=== PATIENT | female | born 1945 | race Caucasian/White ===

== ENCOUNTER 2017-05-13 23:12 | Observation (INO) ==
[2017-05-13] MEDS ORDERED: Ipratropium/Albuterol Neb 3 ML IH ONE (23:14)
[2017-05-13] MEDS ORDERED: Azithromycin 500 MG in D5% in Water 250 ML IVPB ONE (23:16)
[2017-05-13 23:35] LABS: Basophils % 0.2 %; Eosinophils # 0.6 K/mcL (0.0-0.6); Eosinophils % 4.5 %; Hematocrit 38.3 % (35.3-44.9); Hemoglobin 13.1 g/dL (11.5-15.4); Immature Granulocytes % 0.5 % (0-4); Lymphocytes % 23.4 %; Mean Corpuscular HGB Conc 34.2 g/dL (31.6-35.5); Mean Corpuscular Hemoglobin 29.4 pg (28.0-33.3); Mean Corpuscular Volume 85.9 fL (83.0-100.0); Mean Platelet Volume 9.7 fL (9.4-12.4); Monocytes # 0.7 K/mcL (0.0-1.3); Monocytes % 5.5 %; Neutrophils # 8.4 K/mcL (1.6-8.9); Platelet Count 266 K/mcL (140-400); Red Blood Count 4.46 M/mcL (3.82-4.97); Red Cell Distribution Width 13.7 % (11.5-14.5); Segmented Neutrophils % 65.9 %
[2017-05-13] MEDS: 0.9 % Sodium Chloride 1,000 ML IVC ONE (23:42)
[2017-05-13 23:45] LABS: Activated Partial Thrombo Time 26.8 Seconds (26.0-36.0)
[2017-05-13 23:52] LABS: Alanine Aminotransferase 13 Units/L (0-55); Albumin 3.5 g/dL (3.5-5.0); Alkaline Phosphatase 75 Units/L (38-126); Aspartate Amino Transferase 19 Units/L (5-34); BUN/Creatinine Ratio 11 (6-26); Bilirubin,Total 0.3 mg/dL (0.2-1.2); Blood Urea Nitrogen 9 mg/dL (7-20); Calcium 9.3 mg/dL (8.6-10.8); Carbon Dioxide 24 mEq/L (19-29); Chloride 106 mEq/L (98-109); Globulin 3.5 g/dL (2.4-3.5); Glucose 131 mg/dL (70-99); Osmolality,Calculated 298 (280-300); Potassium 2.7 mEq/L (3.5-4.5); Sodium 144 mEq/L (136-145); eGFR For African Americans > 60 (> 60); eGFR For Non-African Americans > 60 (> 60)
--- NOTE | 2017-05-13 23:52 | Emergency Department Note ---
Disposition Clinical Impression: Acute exacerbation of chronic obstructive airways disease, Community acquired pneumonia Disposition: Admitted As Inpatient Condition: Fair Referrals: Al Elder MD [Primary Care Provider] - Forms: ED Satisfaction Letter Time of Disposition: 03:54 ([facility]) SOB HPI - General Chief Complaint: ED Shortness of Breath/Dyspnea Stated Complaint: Difficulty breathing Time Seen by Provider: 05/13/17 23:17 Source: family Mode of arrival: ambulatory Limitations: age Nursing Notes Reviewed: Yes Vital Signs Reviewed: Yes - History of Present Illness 71-year-old female who presents to the emergency room his having increasing shortness of breath wheezing cough unable to catch her breath associated a passout she denies blurred vision double vision loss vision denies diarrhea melena hematochezia or hematemesis she denies numbness tingling weakness recently gain or weight loss patient states though she has been having dyspnea with activity he because seashell short of breath denies any cough hemoptysis or sputum flexion Pt Subjective Complaint: shortness of breath Onset (ago): day(s) Context: recent illness Severity: moderate Consistency/Duration: constant Improves with: oxygen, bronchodilators Worsens with: lying flat, exertion Known history of: COPD, congestive heart failure Associated symptoms: Reports: fever, cough, wheezing, sputum production. Denies : chest pain, pain with inspiration, orthopnea, lower extremity pain, polyuria, polydipsia, parasthesias, palpitations, hemoptysis, diaphoresis, nausea/vomiting , syncope, abdominal pain, rash, sense of impending doom Treatment prior to arrival: none Cough present: Yes Cough Description: Involuntary, Productive, Weak, Bronchospastic, Wheezy Cough Frequency: Intermittent Sputum production: Yes Sputum Amount: Scant Sputum Color: Cream, Yellow - Related Data Home Medications Medication Instructions Recorded Confirmed Citalopram Hydrobromide 20 mg PO DAILY 05/14/17 05/14/17 [Citalopram HBr] Mometasone Furoate [Asmanex Hfa] 2 puff IH BID 05/14/17 05/14/17 Omeprazole [PriLOSEC] 20 mg PO DAILY 05/14/17 05/14/17 Roflumilast [Daliresp] 500 mcg PO DAILY 05/14/17 05/14/17 traZODone [TraZODone] 50 mg PO DAILY 05/14/17 05/14/17 Previous Rx's Medication Instructions Recorded Albuterol Sulfate [Albuterol 2 puff IH Q6HR PRN #1 inhaler 01/18/17 Inhaler] Furosemide [Lasix] 40 mg PO DAILY #30 tablet 01/18/17 Meloxicam 15 mg PO DAILY #7 tablet 01/18/17 Metoprolol [Lopressor] 25 mg PO BID #60 tablet 01/18/17 Potassium Chloride 20 meq PO DAILY #30 tab.er.prt 01/18/17 Allergies Allergy/AdvReac Type Severity Reaction Status Date / Time No Known Allergies Allergy Verified 07/22/16 22:04 All systems ED: reviewed and negative except as stated. Review of Systems: As Per HPI Constitutional: Reports: fever. Denies: chills, weakness Eyes: Denies: eye pain, eye discharge ENT ED: Reports: congestion. Denies: ear pain, throat pain Cardiovascular: Reports: dyspnea on exertion. Denies: chest pain, palpitations Respiratory: Reports: cough, dyspnea, wheezes, sputum production Gastrointestinal: Denies: abdominal pain, nausea, vomiting Genitourinary: Denies: urgency, dysuria, frequency Musculoskeletal: Denies: back pain, neck pain Integumentary: Denies: rash, abrasion, lesions Neurological: Reports: weakness. Denies: headache Psychiatric: Reports: anxiety. Denies: depression Endocrine: Denies: fatigue, heat or cold intolerance Hematological/Lymphatic: Denies: easy bleeding Allergic/Immunologic: Denies: facial swelling Past Medical History - Past Medical History Attestation: Yes The following information was validated with the patient. Source: patient, old records reviewed, nursing notes reviewed Medical history: Reports: COPD Psychiatric history: Reports: anxiety, depression - Social History Smoking Status: Former smoker Smokeless Tobacco Status: No Alcohol use: Reports: none Drug use: Reports: none Physical Exam - General Limitations: age General appearance: alert, anxious, in distress, obese - Head Head exam: atraumatic, normocephalic, normal inspection - Eye Eye exam: Present: normal appearance, PERRL, EOMI - ENT ENT exam: normal exam, normal oropharynx, mucous membranes moist, TM's normal bilaterally, normal external ear exam - Neck Neck exam: Present: normal inspection, full ROM, trachea midline - Chest Chest inspection: Present: normal inspection, symmetric chest wall rise - Respiratory Respiratory exam: Present: wheezes, accessory muscle use, prolonged expiratory phase - Cardiovascular Cardiovascular exam: Present: regular rate, normal rhythm, normal heart sounds - Abdominal Exam Abdominal exam: Present: soft, Non-Tender, normal bowel sounds. Absent: mass, pulsatile mass - Extremities Exam Extremities exam: Present: normal inspection, full ROM, normal capillary refill. Absent: tenderness, pedal edema, joint swelling, calf tenderness - Expanded Lower Extremity Exam Neurovascular/Tendon exam: Present: normal capillary refill, normal fine/light touch Gait: observed and normal - Back Exam Back exam: Present: normal inspection, full ROM. Absent: muscle spasm - Neurological Exam Neurological exam: Present: alert, oriented X3, CN II-XII intact - Psychiatric Psychiatric exam: Present: normal affect, normal mood, anxious - Skin Skin exam: Present: warm, dry, intact, normal color Course Course Narrative: Patient seen examined given an aerosol treatment 2 patient was bringing up phlegm patient was then admitted transferred to [facility] stable Vital Signs Temperature 98.7 F 05/13/17 23:17 Pulse Rate 113 05/13/17 23:17 Respiratory Rate 26 05/13/17 23:17 Blood Pressure 210/122 05/13/17 23:17 O2 Sat by Pulse Oximetry 100 05/13/17 23:17 Temperature 98.8 F 05/14/17 01:15 Pulse Rate 100 05/14/17 02:52 Respiratory Rate 20 05/14/17 02:52 Blood Pressure 206/114 05/14/17 02:52 O2 Sat by Pulse Oximetry 99 05/14/17 02:52 Oxygen Delivery Oxygen Delivery Room Air Shortness of Breath/Dyspnea - Differential Diagnosis Likely: acute exacerbation of chronic obstructive airways disease, congestive heart failure, pneumonia, pneumothorax - Medical Records Medical records reviewed: Yes I reviewed the patient's medical records. - Lab Data Lab results reviewed: Yes I reviewed the patient's lab results. Result diagrams: 05/13/17 23:20 05/13/17 23:20 Lab Results 05/13/17 05/13/17 05/13/17 Range/Units 23:20 23:20 23:20 WBC 12.8 H (4.3-11.1) K/mcL RBC 4.46 (3.82-4.97) M/mcL Hgb 13.1 (11.5-15.4) g/dL Hct 38.3 (35.3-44.9) % MCV 85.9 (83.0-100.0) fL MCH 29.4 (28.0-33.3) pg MCHC 34.2 (31.6-35.5) g/dL RDW 13.7 (11.5-14.5) % Plt Count 266 (140-400) K/mcL MPV 9.7 (9.4-12.4) fL Immature Gran % 0.5 (0-4) % Seg Neutrophils % 65.9 % Lymphocytes % 23.4 % Monocytes % 5.5 % Eosinophils % 4.5 % Basophils % 0.2 % Neutrophils # 8.4 (1.6-8.9) K/mcL Lymphocytes # 3.0 (0.6-4.6) K/mcL Monocytes # 0.7 (0.0-1.3) K/mcL Eosinophils # 0.6 (0.0-0.6) K/mcL Basophils # 0.0 (0.0-0.2) K/mcL PT 11.0 (9.4-12.1) Seconds INR 1.0 APTT 26.8 (26.0-36.0) Seconds Sodium 144 (136-145) mEq/L Potassium 2.7 L (3.5-4.5) mEq/L Chloride 106 (98-109) mEq/L Carbon Dioxide 24 (19-29) mEq/L BUN 9 (7-20) mg/dL Creatinine 0.84 (0.57-1.11) mg/dL Est GFR ( Amer) > 60 (> 60) Est GFR (Non-Af Amer) > 60 (> 60) BUN/Creatinine Ratio 11 (6-26) Glucose 131 H (70-99) mg/dL Calculated Osmolality 298 (280-300) Lactic Acid (0.5-2.2) mmol/L Calcium 9.3 (8.6-10.8) mg/dL Total Bilirubin 0.3 (0.2-1.2) mg/dL AST 19 (5-34) Units/L ALT 13 (0-55) Units/L Alkaline Phosphatase 75 (38-126) Units/L Troponin I (0-0.03) ng/mL B-Natriuretic Peptide (0-100) pg/mL Serum Total Protein 7.0 (6.0-8.3) g/dL Albumin 3.5 (3.5-5.0) g/dL Globulin 3.5 (2.4-3.5) g/dL Albumin/Globulin Ratio 1.0 L (1.1-2.2) 05/13/17 05/13/17 05/13/17 Range/Units 23:20 23:20 23:20 WBC (4.3-11.1) K/mcL RBC (3.82-4.97) M/mcL Hgb (11.5-15.4) g/dL Hct (35.3-44.9) % MCV (83.0-100.0) fL MCH (28.0-33.3) pg MCHC (31.6-35.5) g/dL RDW (11.5-14.5) % Plt Count (140-400) K/mcL MPV (9.4-12.4) fL Immature Gran % (0-4) % Seg Neutrophils % % Lymphocytes % % Monocytes % % Eosinophils % % Basophils % % Neutrophils # (1.6-8.9) K/mcL Lymphocytes # (0.6-4.6) K/mcL Monocytes # (0.0-1.3) K/mcL Eosinophils # (0.0-0.6) K/mcL Basophils # (0.0-0.2) K/mcL PT (9.4-12.1) Seconds INR APTT (26.0-36.0) Seconds Sodium (136-145) mEq/L Potassium (3.5-4.5) mEq/L Chloride (98-109) mEq/L Carbon Dioxide (19-29) mEq/L BUN (7-20) mg/dL Creatinine (0.57-1.11) mg/dL Est GFR ( Amer) (> 60) Est GFR (Non-Af Amer) (> 60) BUN/Creatinine Ratio (6-26) Glucose (70-99) mg/dL Calculated Osmolality (280-300) Lactic Acid 3.1 H (0.5-2.2) mmol/L Calcium (8.6-10.8) mg/dL Total Bilirubin (0.2-1.2) mg/dL AST (5-34) Units/L ALT (0-55) Units/L Alkaline Phosphatase (38-126) Units/L Troponin I 0.00 (0-0.03) ng/mL B-Natriuretic Peptide 117 H (0-100) pg/mL Serum Total Protein (6.0-8.3) g/dL Albumin (3.5-5.0) g/dL Globulin (2.4-3.5) g/dL Albumin/Globulin Ratio (1.1-2.2) - Radiology Data Radiology results reviewed: Yes I reviewed the patient's radiology results. ITS Impressions Chest X-Ray 05/13/17 23:15 IMPRESSION: No acute cardiopulmonary disease. D/ / Horace Llamas MD / Horace Llamas MD Interpreting Provider: Horace Llamas MD Chest CT 05/14/17 00:13 IMPRESSION: 1. Patchy ground-glass opacification in the medial aspect of the right upper lobe suggesting possible pneumonitis. 2. No other acute findings within the lungs. Stable mild subpleural fibrotic changes at the lung bases. D/ / Horace Llamas MD / Horace Llamas MD Interpreting Provider: Horace Llamas MD - EKG Data EKG attestation: Yes I reviewed and interpreted this EKG. EKG results narrative: Sinus tach nonspecific T-wave rate 110 QRS 81 QT axis 0 Critical Care Time Critical Care Time: Yes Total Critical Care Time: 35 Attestation: Critical care performed: 35 minutes result of the patient having hypertensive episodes during her bronchospastic. The time which helped giving her bronchodilatation Y treatments and then relieving and then lying her blood pressure coming down and relax as the patient to show signs of improvement the patient was then discharged to [facility] continue breathing treatments and steroids until she has marked improvement of her air exchange. Abdomen bronchospastic irritation on top of the underlying pneumonia this with Dr. Dillard agrees Time is exclusive of separately billable procedures. Time includes: direct patient care, patient reassessment, coordination of patient care, interpretation of data (laboratory data, radiology data, and respiratory data), review of patient's medical records, medical consultation and documentation of patient care. Procedures included in critical care time: Procedures excluded from critical care time:
[2017-05-14] MEDS: 0.9 % Sodium Chloride 1,000 ML IVC ONE (00:42)
[2017-05-14] MEDS: 0.9 % Sodium Chloride 1,000 ML IVC SCH ×2 (03:34→14:48)
[2017-05-14] MEDS ORDERED: methylPREDNISolone 125 MG/2 ML VIAL IVP ONE (03:43)
[2017-05-14] MEDS ORDERED: methylPREDNISolone 125 MG/2 ML VIAL ONE ×2 (03:45→04:21)
[2017-05-14] MEDS ORDERED: Ondansetron ODT 4 MG TAB.RAPDIS SL PRN (04:21)
[2017-05-14] MEDS ORDERED: Naloxone 0.4 MG/ML INJ IVP PRN (04:21)
[2017-05-14] MEDS ORDERED: 0.9 % Sodium Chloride 1,000 ML IVC SCH (04:21)
[2017-05-14] MEDS ORDERED: Acetaminophen 325 MG TABLET PO PRN (04:21)
[2017-05-14] MEDS ORDERED: Azithromycin 500 MG in D5% in Water 250 ML IVPB SCH (04:21)
[2017-05-14] MEDS: Ipratropium/Albuterol Neb 3 ML IH SCH ×2 (05:05→14:44)
[2017-05-14 07:27] LABS: Basophils % 0.3 %; Eosinophils % 0.3 %; Hematocrit 39.3 % (35.3-44.9); Hemoglobin 13.1 g/dL (11.5-15.4); Immature Granulocytes % 2.3 % (0-4); Lymphocytes # 0.7 K/mcL (0.6-4.6); Lymphocytes % 7.4 %; Mean Corpuscular HGB Conc 33.3 g/dL (31.6-35.5); Mean Corpuscular Volume 87.1 fL (83.0-100.0); Monocytes # 0.1 K/mcL (0.0-1.3); Monocytes % 1.4 %; Neutrophils # 8.8 K/mcL (1.6-8.9); Platelet Count 229 K/mcL (140-400); Red Blood Count 4.51 M/mcL (3.82-4.97); Red Cell Distribution Width 13.9 % (11.5-14.5); Segmented Neutrophils % 88.3 %
[2017-05-14 07:31] LABS: INR 1.1; Prothrombin Time 12.1 Seconds (9.4-12.1)
[2017-05-14 07:34] LABS: Activated Partial Thrombo Time 28.7 Seconds (26.0-36.0)
[2017-05-14 07:41] LABS: Alanine Aminotransferase 12 Units/L (0-55); Albumin 3.3 g/dL (3.5-5.0); Alkaline Phosphatase 75 Units/L (38-126); Aspartate Amino Transferase 16 Units/L (5-34); BUN/Creatinine Ratio 8 (6-26); Bilirubin,Direct 0.1 mg/dL (0.0-0.5); Bilirubin,Indirect 0.1 mg/dL (0.0-1.2); Bilirubin,Total 0.2 mg/dL (0.2-1.2); Blood Urea Nitrogen 7 mg/dL (7-20); Calcium 8.4 mg/dL (8.6-10.8); Carbon Dioxide 20 mEq/L (19-29); Chloride 110 mEq/L (98-109); Globulin 3.4 g/dL (2.4-3.5); Glucose 227 mg/dL (70-99); Osmolality,Calculated 303 (280-300); Potassium 3.4 mEq/L (3.5-4.5); Sodium 144 mEq/L (136-145); Total Protein 6.7 g/dL (6.0-8.3); eGFR For African Americans > 60 (> 60); eGFR For Non-African Americans > 60 (> 60)
[2017-05-14] MEDS ORDERED: DALIRESP 500 MCG PO SCH (09:00)
[2017-05-14] MEDS ORDERED: traZODone 50 MG TABLET PO SCH ×2 (09:00→21:00)
[2017-05-14] MEDS: Furosemide 40 MG TABLET PO SCH (09:51)
[2017-05-14] MEDS ORDERED: methylPREDNISolone 125 MG/2 ML VIAL IVP SCH (10:00)
[2017-05-14] MEDS: Albuterol 2.5 MG/3 ML NEBULIZER IH PRN ×2 (11:29→21:55)
--- NOTE | 2017-05-14 11:34 | Internal Med History&Physical ---
Date of Encounter: 05/14/17 Time of Encounter: 11:00 Assessment and Plan (1) Community acquired pneumonia Current visit: Yes Status: Acute She has been started on Rocephin and Zithromax. I will add lactobacillus. Qualifiers: Laterality: right Lung location: upper lobe of lung Qualified Code(s): J18.1 - Lobar pneumonia, unspecified organism (2) Hypokalemia Current visit: Yes Status: Acute K riders have been ordered. I will increase the dose of oral potassium supplement. Recheck labs in a.m. (3) Hypertension Current visit: Yes Status: Chronic Continue Lopressor Qualifiers: Hypertension type: essential hypertension Qualified Code(s): I10 - Essential (primary) hypertension Internal Medicine - H&P: HPI Chief complaint: Dyspnea Admitted From: Home Plans for Post Hospital Care: Home History of present illness: Ms. Delaney is a 71 year old female who came to emergency room stating she had dyspnea onset approximately 2 weeks earlier. She felt she had "flu". She took OTC medication without improvement. She came to emergency room and was evaluated with CT scan showing probable right lung pneumonia. She was admitted to [facility] floor for ongoing care needs. She states she had pneumonia previously approximately 2010. She states she smoked from age [age] never up to one half pack per day. She has a diagnosis COPD but does not wear home oxygen. Past Med Surg Social Fam HX - Past Medical History Medical history: COPD Psychiatric history: anxiety, depression - Social History Smoking Status: Former smoker Packs per day: 1 Smokeless Tobacco Status: No Alcohol use: none Drug use: none Internal Medicine - H&P: Meds Albuterol Sulfate [Albuterol Inhaler] 2 puff IH Q6HR PRN #1 inhaler 01/18/17 [Rx ] Furosemide [Lasix] 40 mg PO DAILY #30 tablet 01/18/17 [Rx] Meloxicam 15 mg PO DAILY #7 tablet 01/18/17 [Rx] Metoprolol [Lopressor] 25 mg PO BID #60 tablet 01/18/17 [Rx] Potassium Chloride 20 meq PO DAILY #30 tab.er.prt 01/18/17 [Rx] Citalopram Hydrobromide [Citalopram HBr] 20 mg PO DAILY 05/14/17 [History] Mometasone Furoate [Asmanex Hfa] 2 puff IH BID 05/14/17 [History] Omeprazole [PriLOSEC] 20 mg PO DAILY 05/14/17 [History] Roflumilast [Daliresp] 500 mcg PO DAILY 05/14/17 [History] traZODone [TraZODone] 50 mg PO DAILY 05/14/17 [History] 3 Allergy/AdvReac Type Severity Reaction Status Date / Time No Known Allergies Allergy Verified 07/22/16 22:04 All Systems PM: A 10-system review of systems was performed and is negative for pertinent findings except as documented above in the HPI. Review of systems: Gen.: She states her weight has been stable the past few months Cardiovascular: She has history of hypertension but denies heart failure DVT or pulmonary embolus. She thinks she was told she had an FL at the time of delivery of one of her children. Respiratory: As per history of present illness GI: She denies disorders of her liver gallbladder or exocrine pancreas. She reports having gallstones removed without cholecystectomy performed. : She denies hematuria dysuria or kidney stones Neurologic: She denies large distribution strokes or seizures Endocrine: She denies diabetes thyroid disease or hyperlipidemia Hematology/oncology: She reports anemia in the past that resolved. She denies internal malignancies or other blood disorders. Psychiatric: She has depression but denies anxiety or other mental health issues Musk skeletal: She states she has rheumatoid arthritis and has chronic low back pain from a previous sacral fracture. - Constitutional Vitals: Temp Pulse Resp BP Pulse Ox 97.9 F 94 18 148/83 94 05/14/17 10:31 05/14/17 10:31 05/14/17 10:31 05/14/17 10:31 05/14/17 10:31 Exam: Gen.: She is a well-developed well-nourished female who appears in no severe distress at present time HEENT: Head is atraumatic and normocephalic. Eyes: EOMI. There is no scleral icterus. Mouth: Mucosa is moist. Neck: Supple and nontender. There is no thyromegaly or adenopathy noted. Heart: Regular without murmurs gallops or ectopics Lungs: No wheezes or crackles are heard. Abdomen: Soft and nontender. No masses or guarding are noted. Extremities: There is no cyanosis edema or clubbing noted. Dorsalis pedis and posterior tibial pulses are trace to 1+ palpable bilaterally. Neurologic: Mental status: She is talkative and a good historian. Cranial nerves: Smile is symmetric. Forehead wrinkles bilaterally tongue protrudes midline EOMI. Motor: There is no pronator drift. Cerebellar: Finger to nose is intact bilaterally. Skin: Warm and dry Internal Med - H&P Results - Labs CBC & Chem 7: 05/14/17 07:14 05/14/17 07:14 Labs: Short CBC 05/14/17 Range/Units 07:14 WBC 10.0 (4.3-11.1) K/mcL Hgb 13.1 (11.5-15.4) g/dL Hct 39.3 (35.3-44.9) % Plt Count 229 (140-400) K/mcL Neutrophils # 8.8 (1.6-8.9) K/mcL BMP 05/14/17 07:14 Sodium 144 Potassium 3.4 L Chloride 110 H Carbon Dioxide 20 BUN 7 Creatinine 0.83 Glucose 227 H Calcium 8.4 L Liver Function 05/14/17 Range/Units 07:14 Total Bilirubin 0.2 (0.2-1.2) mg/dL Direct Bilirubin 0.1 (0.0-0.5) mg/dL AST 16 (5-34) Units/L ALT 12 (0-55) Units/L Alkaline Phosphatase 75 (38-126) Units/L Albumin 3.3 L (3.5-5.0) g/dL
[2017-05-14] MEDS: Lactobacillus 1 EACH CAP.SPRINK PO SCH (19:53)
[2017-05-15] MEDS ORDERED: Azithromycin 500 MG in D5% in Water 250 ML IVPB SCH (01:00)
[2017-05-15 05:48] LABS: Basophils % 0.1 %; Hematocrit 35.3 % (35.3-44.9); Hemoglobin 11.8 g/dL (11.5-15.4); Immature Granulocytes % 0.8 % (0-4); Lymphocytes # 1.4 K/mcL (0.6-4.6); Lymphocytes % 11.4 %; Mean Corpuscular HGB Conc 33.4 g/dL (31.6-35.5); Mean Corpuscular Hemoglobin 28.8 pg (28.0-33.3); Mean Corpuscular Volume 86.1 fL (83.0-100.0); Mean Platelet Volume 9.9 fL (9.4-12.4); Monocytes # 0.7 K/mcL (0.0-1.3); Monocytes % 6.1 %; Neutrophils # 9.9 K/mcL (1.6-8.9); Platelet Count 276 K/mcL (140-400); Segmented Neutrophils % 81.6 %
[2017-05-15 06:04] LABS: BUN/Creatinine Ratio 16 (6-26); Blood Urea Nitrogen 17 mg/dL (7-20); Calcium 9.2 mg/dL (8.6-10.8); Carbon Dioxide 24 mEq/L (19-29); Chloride 107 mEq/L (98-109); Glucose 166 mg/dL (70-99); Osmolality,Calculated 299 (280-300); Potassium 3.5 mEq/L (3.5-4.5); Sodium 142 mEq/L (136-145); eGFR For African Americans > 60 (> 60); eGFR For Non-African Americans 52 (> 60)
[2017-05-15 06:34] VITALS: BP 124/92
[2017-05-15] MEDS: Furosemide 40 MG TABLET PO SCH (07:56)
[2017-05-15] MEDS: Lactobacillus 1 EACH CAP.SPRINK PO SCH (07:56)
--- NOTE | 2017-05-15 10:03 | Discharge Summary ---
Date of Encounter: 05/15/17 Time of Encounter: 09:50 - Discharge Diagnosis (1) Community acquired pneumonia Priority: Primary Status: Acute Qualifiers: Laterality: right Lung location: upper lobe of lung Qualified Code(s): J18.1 - Lobar pneumonia, unspecified organism (2) Hypokalemia Priority: Secondary Status: Resolved (3) Hypertension Priority: Secondary Status: Chronic Qualifiers: Hypertension type: essential hypertension Qualified Code(s): I10 - Essential (primary) hypertension - Discharge Medications Prescriptions: Cefuroxime PO [Ceftin] 500 mg PO Q12HR #8 tablet Azithromycin [Zithromax] 250 mg PO DAILY #4 tablet Lactobacillus [Culturelle] 1 each PO BID #8 cap.sprink Potassium Chloride 10 meq PO DAILY #30 tab.er.prt Home Medications: Albuterol Sulfate [Albuterol Inhaler] 2 puff IH Q6HR PRN #1 inhaler 01/18/17 [Rx ] Metoprolol [Lopressor] 25 mg PO BID #60 tablet 01/18/17 [Rx] Citalopram Hydrobromide [Citalopram HBr] 20 mg PO DAILY 05/14/17 [History] Mometasone Furoate [Asmanex Hfa] 2 puff IH BID 05/14/17 [History] Omeprazole [PriLOSEC] 20 mg PO DAILY 05/14/17 [History] Roflumilast [Daliresp] 500 mcg PO DAILY 05/14/17 [History] traZODone [TraZODone] 50 mg PO DAILY 05/14/17 [History] Azithromycin [Zithromax] 250 mg PO DAILY #4 tablet 05/15/17 [Rx] Cefuroxime PO [Ceftin] 500 mg PO Q12HR #8 tablet 05/15/17 [Rx] Furosemide [Lasix] 20 mg PO DAILY #30 tablet 05/15/17 [Rx] Lactobacillus [Culturelle] 1 each PO BID #8 cap.sprink 05/15/17 [Rx] Potassium Chloride 10 meq PO DAILY #30 tab.er.prt 05/15/17 [Rx] Allergies/Adverse Reactions: 3 Allergy/AdvReac Type Severity Reaction Status Date / Time No Known Allergies Allergy Verified 07/22/16 22:04 Date of admission: 10/08/17 04:06 Primary care physician: Al Elder MD - Patient Status Disposition: Home, Self-Care Condition: Fair Functional capacity at discharge: independent ambulation Overall status at discharge: patient is progressing back to baseline - Discharge Instructions Follow Up With: Al Elder MD [Primary Care Provider] - 1 week - Diet and Activity Activity: resume usual activities as tolerated Diet: advance to your usual diet Hospital course: Ms. Delaney is a 71 year old female who came to emergency room stating she had dyspnea onset approximately 2 weeks earlier. She felt she had "flu". She took OTC medication without improvement. She came to emergency room and was evaluated with CT scan showing probable right lung pneumonia. She was admitted to [facility] for ongoing care needs. Initial orders were written by the emergency room physician. I saw her on May 14 and performed a history and physical. She was started on Rocephin and Zithromax with lactobacillus. She remained afebrile during her hospital stay. She felt improved when I saw her on May 15. Supplemental potassium was given and hypokalemia resolved. She will continue on oral potassium supplement at home. Her Lasix dose was reduced to 20 meq daily. She had mild azotemia on the day of discharge with creatinine 1.05 and estimate her GFR 52. She will reduce Lasix dose and discontinue meloxicam. On May 15 she felt stable for discharge home. She will continue with antibiotics and probiotics for 4 additional days of discharge. She will follow with her PCP Dr. Elder within 1 week. - Time Spent with Patient Total time spent providing and/or coordinating discharge services: - Constitutional Vitals: Temp Pulse Resp BP Pulse Ox 98.7 F 83 18 124/92 96 05/15/17 06:31 05/15/17 06:31 05/15/17 06:31 05/15/17 06:31 05/15/17 06:31
[2017-05-15] MEDS ORDERED: FLUARIX QUAD 2017-18 36MOS UP/PF 0.5 ML SYRINGE IM ONE (10:20)
--- NOTE | 2017-05-15 20:05 | Electrocardiograph Report ---
[address] [address] Test Date: 2017-05-13 Pat Name: Tamara Delaney Department: [id number] Room: [facility] Gender: F Facing Baster: [id number] : 1945 Requested By: Dianne Raymundo Order Number: [id number] Reading MD: Kumar Rivera MD Measurements Intervals Miller Rate: 110 P: 53 SC: 195 QRS: 0 QRSD: 81 T: 42 QT: 381 QTc: 446 Interpretive Statements SINUS TACHYCARDIA LEFT ATRIAL ENLARGEMENT Electronically Signed On 05-15-2017 20:03:32 EDT by Kumar Rivera MD
== END 2017-05-15 13:42 | disposition home or self-care (01) ==
LOC: EMEROOPIK 23:12 → INPPIK 23:12 → EMEROOPIK 05-14 03:41 → INPPIK 05-14 04:12
PROVIDERS: ADMIT Internal Medicine; ATTEND Internal Medicine

== ENCOUNTER 2020-09-25 19:31 | Observation (INO) ==
[2020-09-25] MEDS ORDERED: Isovue-370 500 ML BOTTLE IVP ONE (20:07)
[2020-09-25] MEDS ORDERED: Ipratropium/Albuterol Neb 3 ML IH ONE ×2 (20:08→22:29)
[2020-09-25 20:40] LABS: Basophils % 0.3 %; Eosinophils # 0.2 K/mcL (0.0-0.6); Eosinophils % 1.9 %; Hematocrit 42.4 % (35.3-44.9); Hemoglobin 13.6 g/dL (11.5-15.4); Immature Granulocytes % 0.5 % (0-4); Lymphocytes # 2.1 K/mcL (0.6-4.6); Lymphocytes % 17.9 %; Mean Corpuscular HGB Conc 32.1 g/dL (31.6-35.5); Mean Corpuscular Hemoglobin 29.8 pg (28.0-33.3); Mean Corpuscular Volume 92.8 fL (83.0-100.0); Mean Platelet Volume 10.1 fL (9.4-12.4); Monocytes # 0.4 K/mcL (0.0-1.3); Monocytes % 3.6 %; Neutrophils # 8.9 K/mcL (1.6-8.9); Platelet Count 249 K/mcL (140-400); Red Blood Count 4.57 M/mcL (3.82-4.97); Segmented Neutrophils % 75.8 %; White Blood Count 11.8 K/mcL (4.3-11.1)
[2020-09-25 20:53] LABS: INR 1.1; Prothrombin Time 12.9 Seconds (9.4-12.1)
[2020-09-25 20:56] LABS: Activated Partial Thrombo Time 27.5 Seconds (26.0-36.0)
[2020-09-25 21:05] LABS: BUN/Creatinine Ratio 14 (6-26); Blood Urea Nitrogen 12 mg/dL (8-23); Calcium 8.6 mg/dL (8.6-10.3); Carbon Dioxide 25 mEq/L (23-29); Chloride 103 mEq/L (98-107); Glucose 162 mg/dL (70-105); Osmolality,Calculated 291 (280-300); Potassium 3.7 mEq/L (3.5-5.1); Sodium 139 mEq/L (136-145); Troponin I < 0.03 ng/mL (< 0.04); eGFR For African Americans > 60 (> 60); eGFR For Non-African Americans > 60 (> 60)
[2020-09-25 21:12] LABS: Platelet Estimate Normal (Normal)
[2020-09-25] MEDS ORDERED: Azithromycin 500 MG in 0.9 % Sodium Chloride 250 ML IVPB ONE (22:09)
[2020-09-25] MEDS ORDERED: MethylPREDNISolone 40 MG/ML VIAL IVP ONE (23:25)
[2020-09-25] MEDS ORDERED: Naloxone 0.4 MG/ML INJ IVP PRN (23:25)
[2020-09-26] MEDS ORDERED: Ipratropium/Albuterol Neb 3 ML IH SCH
[2020-09-26] MEDS: traZODone 50 MG TABLET PO PRN ×2 (00:08→20:25)
[2020-09-26] MEDS: 0.9 % Sodium Chloride 1,000 ML IVC SCH ×2 (00:08→10:05)
[2020-09-26] MEDS ORDERED: Isovue-370 500 ML BOTTLE IVP ONE (00:49)
[2020-09-26] MEDS: Levalbuterol Neb 0.63 MG/3 ML IH SCH ×3 (04:20→17:11)
[2020-09-26] MEDS: Ipratropium Neb 0.5 MG NEBULIZER IH SCH ×3 (04:20→17:11)
[2020-09-26] MEDS: hydroCHLOROthiazide 25 MG TABLET PO SCH (08:04)
[2020-09-26] MEDS: Gabapentin 300 MG CAPSULE PO SCH ×2 (08:04→20:25)
[2020-09-26] MEDS: Famotidine 20 MG TABLET PO SCH ×2 (08:04→17:22)
[2020-09-26] MEDS ORDERED: Azithromycin 500 MG in 0.9 % Sodium Chloride 250 ML IVPB SCH ×2 (09:00→23:00)
[2020-09-26] MEDS ORDERED: cefTRIAXone 1,000 MG in 0.9 % Sodium Chloride Mini Bag 100 ML IVPB SCH ×2 (09:00→22:00)
[2020-09-26] MEDS: Ipratropium/Albuterol Neb 3 ML IH SCH ×4 (10:17→20:35)
[2020-09-26] MEDS: MethylPREDNISolone 40 MG/ML VIAL IVP SCH ×2 (11:50→17:21)
[2020-09-26] MEDS: Tiotropium 10 INH DOSE IH SCH (20:18)
[2020-09-26] MEDS ORDERED: Methyl Salicylate/Menthol 57 APPL/57 GM TUBE TP PRN (23:01)
[2020-09-26] MEDS ORDERED: Trolamine Salicylate/Aloe Vera 85 APPL/85 GM TUBE TP ONE (23:45)
[2020-09-27] MEDS: Ipratropium/Albuterol Neb 3 ML IH SCH ×3 (00:06→08:36)
[2020-09-27] MEDS: MethylPREDNISolone 40 MG/ML VIAL IVP SCH (05:38)
[2020-09-27 07:48] LABS: Hematocrit 37.3 % (35.3-44.9); Hemoglobin 12.3 g/dL (11.5-15.4); Mean Corpuscular Hemoglobin 30.2 pg (28.0-33.3); Mean Corpuscular Volume 91.6 fL (83.0-100.0); Mean Platelet Volume 10.3 fL (9.4-12.4); Platelet Count 339 K/mcL (140-400); Red Blood Count 4.07 M/mcL (3.82-4.97); Red Cell Distribution Width 14.5 % (11.5-14.5); White Blood Count 20.7 K/mcL (4.3-11.1)
[2020-09-27 08:18] LABS: BUN/Creatinine Ratio 19 (6-26); Blood Urea Nitrogen 17 mg/dL (8-23); Carbon Dioxide 26 mEq/L (23-29); Chloride 101 mEq/L (98-107); Glucose 323 mg/dL (70-105); Osmolality,Calculated 296 (280-300); Potassium 4.4 mEq/L (3.5-5.1); Sodium 136 mEq/L (136-145); eGFR For African Americans > 60 (> 60); eGFR For Non-African Americans > 60 (> 60)
[2020-09-27] MEDS ORDERED: Azithromycin 500 MG in 0.9 % Sodium Chloride 250 ML IVPB SCH (09:00)
[2020-09-27] MEDS: Famotidine 20 MG TABLET PO SCH ×2 (09:11→16:57)
[2020-09-27] MEDS: hydroCHLOROthiazide 25 MG TABLET PO SCH (09:12)
[2020-09-27] MEDS: Gabapentin 300 MG CAPSULE PO SCH ×2 (09:13→20:29)
[2020-09-27] MEDS: Ipratropium/Albuterol Neb 3 ML IH PRN ×2 (12:56→21:45)
[2020-09-27] MEDS: Tiotropium 10 INH DOSE IH SCH (20:27)
[2020-09-27] MEDS: traZODone 50 MG TABLET PO PRN (20:29)
[2020-09-28 06:22] VITALS: BP 123/79
[2020-09-28 07:28] LABS: Basophils % 0.2 %; Eosinophils % 0.2 %; Hematocrit 39.2 % (35.3-44.9); Hemoglobin 12.9 g/dL (11.5-15.4); Immature Granulocytes % 0.9 % (0-4); Lymphocytes # 4.2 K/mcL (0.6-4.6); Lymphocytes % 26.2 %; Mean Corpuscular HGB Conc 32.9 g/dL (31.6-35.5); Mean Corpuscular Hemoglobin 29.9 pg (28.0-33.3); Mean Platelet Volume 9.8 fL (9.4-12.4); Monocytes # 0.8 K/mcL (0.0-1.3); Monocytes % 4.8 %; Neutrophils # 10.9 K/mcL (1.6-8.9); Platelet Count 311 K/mcL (140-400); Red Blood Count 4.31 M/mcL (3.82-4.97); Red Cell Distribution Width 14.2 % (11.5-14.5); Segmented Neutrophils % 67.7 %; White Blood Count 16.1 K/mcL (4.3-11.1)
[2020-09-28 07:45] LABS: BUN/Creatinine Ratio 21 (6-26); Blood Urea Nitrogen 21 mg/dL (8-23); Calcium 9.1 mg/dL (8.6-10.3); Carbon Dioxide 31 mEq/L (23-29); Chloride 100 mEq/L (98-107); Glucose 168 mg/dL (70-105); Osmolality,Calculated 297 (280-300); Sodium 140 mEq/L (136-145); eGFR For African Americans > 60 (> 60); eGFR For Non-African Americans 54 (> 60)
[2020-09-28] MEDS: Famotidine 20 MG TABLET PO SCH (08:22)
[2020-09-28] MEDS: hydroCHLOROthiazide 25 MG TABLET PO SCH (08:23)
[2020-09-28] MEDS: Gabapentin 300 MG CAPSULE PO SCH (08:23)
[2020-09-28] MEDS ORDERED: Azithromycin 250 MG TABLET PO SCH (09:00)
[2020-09-28] MEDS: Ipratropium/Albuterol Neb 3 ML IH PRN (09:35)
== END 2020-09-28 10:40 | disposition home or self-care (01) ==
LOC: EMEROOPIK 19:31 → INPPIK 19:31
PROVIDERS: ADMIT Family Medicine; ATTEND Family Medicine

== ENCOUNTER 2021-09-24 14:07 | Inpatient (IN) ==
[2021-09-24] MEDS ORDERED: *HR* Dextrose 50 % in Water (Syg) 50 ML SYRINGE IVP PRN (15:52)
[2021-09-24] MEDS ORDERED: D5% in Water 1,000 ML IVC PRN (15:52)
[2021-09-24] MEDS ORDERED: Dextrose Gel 15 GM/37.5 ML TUBE PO PRN ×2 (15:52)
[2021-09-24] MEDS ORDERED: Albuterol 2.5 MG/3 ML NEBULIZER IH PRN (15:55)
[2021-09-25] MEDS ORDERED: traZODone 50 MG TABLET PO PRN (04:13)
[2021-09-25] MEDS: *HR* Enoxaparin 40 MG/0.4 ML SYRINGE SQ SCH (06:32)
[2021-09-25 07:57] LABS: Basophils % 0.2 %; Eosinophils # 0.1 K/mcL (0.0-0.6); Eosinophils % 0.8 %; Immature Granulocytes % 0.9 % (0-4); Lymphocytes # 4.1 K/mcL (0.6-4.6); Lymphocytes % 24.6 %; Mean Corpuscular HGB Conc 32.5 g/dL (31.6-35.5); Mean Corpuscular Volume 89.1 fL (83.0-100.0); Mean Platelet Volume 9.9 fL (9.4-12.4); Monocytes # 1.2 K/mcL (0.0-1.3); Monocytes % 7.1 %; Platelet Count 283 K/mcL (140-400); Red Blood Count 4.49 M/mcL (3.82-4.97); Red Cell Distribution Width 15.1 % (11.5-14.5); Segmented Neutrophils % 66.4 %; White Blood Count 16.6 K/mcL (4.3-11.1)
[2021-09-25 08:04] LABS: INR 1.1; Prothrombin Time 11.8 Seconds (9.4-12.1)
[2021-09-25 08:15] LABS: BUN/Creatinine Ratio 27 (6-26); Blood Urea Nitrogen 24 mg/dL (8-23); Carbon Dioxide 33 mEq/L (23-29); Chloride 96 mEq/L (98-107); Glucose 165 mg/dL (70-105); Osmolality,Calculated 290 (280-300); Potassium 3.8 mEq/L (3.5-5.1); Sodium 136 mEq/L (136-145); eGFR For African Americans > 60 (> 60); eGFR For Non-African Americans > 60 (> 60)
[2021-09-25] MEDS: tiZANidine 4 MG TABLET PO SCH ×3 (08:23→20:21)
[2021-09-25] MEDS: hydroCHLOROthiazide 25 MG TABLET PO SCH (08:23)
[2021-09-25] MEDS: FLUoxetine 20 MG CAPSULE PO SCH (08:23)
[2021-09-25] MEDS: Gabapentin 300 MG CAPSULE PO SCH ×2 (08:23→20:21)
[2021-09-25] MEDS: Cholecalciferol (D-3) 1,000 UNIT (25MCG) TABLET PO SCH (08:24)
[2021-09-25] MEDS: Insulin LISPRO 300 UNITS/3 ML VIAL SUBQ SCH ×3 (08:38→16:24)
[2021-09-25] MEDS: Tiotropium 10 INH DOSE IH SCH (09:32)
[2021-09-25] MEDS ORDERED: Insulin LISPRO 300 UNITS/3 ML VIAL SUBQ SCH (21:00)
[2021-09-25] MEDS: predniSONE 20 MG TABLET PO SCH (22:12)
[2021-09-26] MEDS: *HR* Enoxaparin 40 MG/0.4 ML SYRINGE SQ SCH (05:52)
[2021-09-26] MEDS: Cholecalciferol (D-3) 1,000 UNIT (25MCG) TABLET PO SCH (08:35)
[2021-09-26] MEDS: Insulin LISPRO 300 UNITS/3 ML VIAL SUBQ SCH ×3 (08:35→16:52)
[2021-09-26] MEDS: predniSONE 20 MG TABLET PO SCH (08:35)
[2021-09-26] MEDS: Insulin DETEMIR 100 UNIT/ML X5UNITS SUBQ SCH ×2 (08:35→19:38)
[2021-09-26] MEDS: tiZANidine 4 MG TABLET PO SCH ×3 (08:35→19:37)
[2021-09-26] MEDS: FLUoxetine 20 MG CAPSULE PO SCH (08:35)
[2021-09-26] MEDS: Gabapentin 300 MG CAPSULE PO SCH ×2 (08:36→19:38)
[2021-09-26] MEDS: hydroCHLOROthiazide 25 MG TABLET PO SCH (08:36)
[2021-09-26] MEDS: Tiotropium 10 INH DOSE IH SCH (10:03)
[2021-09-26 12:21] LABS: Estimated Average Glucose 146 mg/dl; Hemoglobin A1C 6.7 %
[2021-09-27] MEDS: *HR* Enoxaparin 40 MG/0.4 ML SYRINGE SQ SCH (05:44)
[2021-09-27] MEDS: Insulin LISPRO 300 UNITS/3 ML VIAL SUBQ SCH ×3 (07:24→17:01)
[2021-09-27] MEDS: Cholecalciferol (D-3) 1,000 UNIT (25MCG) TABLET PO SCH (07:47)
[2021-09-27] MEDS: hydroCHLOROthiazide 25 MG TABLET PO SCH (07:47)
[2021-09-27] MEDS: tiZANidine 4 MG TABLET PO SCH ×3 (07:47→19:37)
[2021-09-27] MEDS: Gabapentin 300 MG CAPSULE PO SCH ×2 (07:48→19:37)
[2021-09-27] MEDS: FLUoxetine 20 MG CAPSULE PO SCH (07:48)
[2021-09-27] MEDS: predniSONE 10 MG TABLET PO SCH (08:24)
[2021-09-27] MEDS: Insulin DETEMIR 100 UNIT/ML X5UNITS SUBQ SCH ×2 (08:25→20:59)
[2021-09-27] MEDS: Tiotropium 10 INH DOSE IH SCH (09:22)
[2021-09-28] MEDS: *HR* Enoxaparin 40 MG/0.4 ML SYRINGE SQ SCH (05:20)
[2021-09-28] MEDS: Cholecalciferol (D-3) 1,000 UNIT (25MCG) TABLET PO SCH (08:17)
[2021-09-28] MEDS: Gabapentin 300 MG CAPSULE PO SCH ×2 (08:18→19:45)
[2021-09-28] MEDS: tiZANidine 4 MG TABLET PO SCH ×3 (08:18→19:45)
[2021-09-28] MEDS: predniSONE 10 MG TABLET PO SCH (08:18)
[2021-09-28] MEDS: FLUoxetine 20 MG CAPSULE PO SCH (08:19)
[2021-09-28] MEDS: hydroCHLOROthiazide 25 MG TABLET PO SCH (08:19)
[2021-09-28] MEDS: Insulin LISPRO 300 UNITS/3 ML VIAL SUBQ SCH ×3 (08:19→16:28)
[2021-09-28] MEDS: Insulin DETEMIR 100 UNIT/ML X5UNITS SUBQ SCH ×2 (08:19→19:45)
[2021-09-28] MEDS: Tiotropium 10 INH DOSE IH SCH (09:07)
[2021-09-29] MEDS: *HR* Enoxaparin 40 MG/0.4 ML SYRINGE SQ SCH (05:54)
[2021-09-29 07:31] LABS: Hematocrit 38.2 % (35.3-44.9); Hemoglobin 12.2 g/dL (11.5-15.4); Mean Corpuscular HGB Conc 31.9 g/dL (31.6-35.5); Mean Corpuscular Hemoglobin 29.1 pg (28.0-33.3); Mean Corpuscular Volume 91.2 fL (83.0-100.0); Mean Platelet Volume 9.9 fL (9.4-12.4); Platelet Count 314 K/mcL (140-400); Red Blood Count 4.19 M/mcL (3.82-4.97); Red Cell Distribution Width 14.8 % (11.5-14.5); White Blood Count 18.3 K/mcL (4.3-11.1)
[2021-09-29 08:00] LABS: BUN/Creatinine Ratio 25 (6-26); Blood Urea Nitrogen 23 mg/dL (8-23); Calcium 8.3 mg/dL (8.6-10.3); Carbon Dioxide 37 mEq/L (23-29); Chloride 96 mEq/L (98-107); Glucose 142 mg/dL (70-105); Osmolality,Calculated 290 (280-300); Potassium 3.1 mEq/L (3.5-5.1); Sodium 137 mEq/L (136-145); eGFR For African Americans > 60 (> 60); eGFR For Non-African Americans 59 (> 60)
[2021-09-29] MEDS: tiZANidine 4 MG TABLET PO SCH ×3 (09:03→20:04)
[2021-09-29] MEDS: FLUoxetine 20 MG CAPSULE PO SCH (09:03)
[2021-09-29] MEDS: Cholecalciferol (D-3) 1,000 UNIT (25MCG) TABLET PO SCH (09:03)
[2021-09-29] MEDS: Gabapentin 300 MG CAPSULE PO SCH ×2 (09:04→20:04)
[2021-09-29] MEDS: hydroCHLOROthiazide 25 MG TABLET PO SCH (09:04)
[2021-09-29] MEDS: predniSONE 20 MG TABLET PO SCH (09:04)
[2021-09-29] MEDS: Insulin LISPRO 300 UNITS/3 ML VIAL SUBQ SCH ×3 (09:05→17:16)
[2021-09-29] MEDS: Insulin DETEMIR 100 UNIT/ML X5UNITS SUBQ SCH ×2 (09:06→20:05)
[2021-09-29 09:18] LABS: Eosinophils # 0.4 K/mcL (0.0-0.6); Lymphocytes # 5.5 K/mcL (0.6-4.6); Monocytes # 0.7 K/mcL (0.0-1.3); Platelet Estimate Normal (Normal)
[2021-09-29] MEDS: Tiotropium 10 INH DOSE IH SCH (09:54)
[2021-09-30] MEDS: *HR* Enoxaparin 40 MG/0.4 ML SYRINGE SQ SCH (06:03)
[2021-09-30] MEDS: Insulin LISPRO 300 UNITS/3 ML VIAL SUBQ SCH ×3 (07:26→16:56)
[2021-09-30] MEDS: Cholecalciferol (D-3) 1,000 UNIT (25MCG) TABLET PO SCH (07:56)
[2021-09-30] MEDS: tiZANidine 4 MG TABLET PO SCH ×3 (07:56→20:00)
[2021-09-30] MEDS: hydroCHLOROthiazide 25 MG TABLET PO SCH (07:57)
[2021-09-30] MEDS: Gabapentin 300 MG CAPSULE PO SCH ×2 (07:57→19:59)
[2021-09-30] MEDS: FLUoxetine 20 MG CAPSULE PO SCH (07:57)
[2021-09-30] MEDS: predniSONE 20 MG TABLET PO SCH (07:57)
[2021-09-30] MEDS: Insulin DETEMIR 100 UNIT/ML X5UNITS SUBQ SCH ×2 (09:49→20:01)
[2021-09-30] MEDS: Tiotropium 10 INH DOSE IH SCH (10:15)
[2021-10-01] MEDS: *HR* Enoxaparin 40 MG/0.4 ML SYRINGE SQ SCH (05:42)
[2021-10-01 06:58] LABS: Hematocrit 36.3 % (35.3-44.9); Hemoglobin 11.6 g/dL (11.5-15.4); Mean Corpuscular Hemoglobin 29.1 pg (28.0-33.3); Mean Corpuscular Volume 91.2 fL (83.0-100.0); Mean Platelet Volume 9.9 fL (9.4-12.4); Platelet Count 305 K/mcL (140-400); Red Blood Count 3.98 M/mcL (3.82-4.97); Red Cell Distribution Width 14.6 % (11.5-14.5)
[2021-10-01 07:14] LABS: BUN/Creatinine Ratio 28 (6-26); Blood Urea Nitrogen 24 mg/dL (8-23); Calcium 8.7 mg/dL (8.6-10.3); Carbon Dioxide 32 mEq/L (23-29); Chloride 96 mEq/L (98-107); Glucose 233 mg/dL (70-105); Osmolality,Calculated 292 (280-300); Potassium 3.6 mEq/L (3.5-5.1); Sodium 135 mEq/L (136-145); eGFR For African Americans > 60 (> 60); eGFR For Non-African Americans > 60 (> 60)
[2021-10-01] MEDS: predniSONE 10 MG TABLET PO SCH (08:26)
[2021-10-01] MEDS: hydroCHLOROthiazide 25 MG TABLET PO SCH (08:27)
[2021-10-01] MEDS: tiZANidine 4 MG TABLET PO SCH ×3 (08:27→21:56)
[2021-10-01] MEDS: FLUoxetine 20 MG CAPSULE PO SCH (08:27)
[2021-10-01] MEDS: Cholecalciferol (D-3) 1,000 UNIT (25MCG) TABLET PO SCH (08:27)
[2021-10-01] MEDS: Gabapentin 300 MG CAPSULE PO SCH ×2 (08:27→21:56)
[2021-10-01] MEDS: Insulin LISPRO 300 UNITS/3 ML VIAL SUBQ SCH ×3 (08:28→17:15)
[2021-10-01] MEDS: Insulin DETEMIR 100 UNIT/ML X5UNITS SUBQ SCH ×2 (08:28→22:01)
[2021-10-01] MEDS: Tiotropium 10 INH DOSE IH SCH (10:11)
[2021-10-02] MEDS: *HR* Enoxaparin 40 MG/0.4 ML SYRINGE SQ SCH (06:42)
[2021-10-02] MEDS: Cholecalciferol (D-3) 1,000 UNIT (25MCG) TABLET PO SCH (08:33)
[2021-10-02] MEDS: FLUoxetine 20 MG CAPSULE PO SCH (08:33)
[2021-10-02] MEDS: Insulin LISPRO 300 UNITS/3 ML VIAL SUBQ SCH ×3 (08:33→17:27)
[2021-10-02] MEDS: tiZANidine 4 MG TABLET PO SCH ×3 (08:33→20:50)
[2021-10-02] MEDS: Gabapentin 300 MG CAPSULE PO SCH ×2 (08:33→20:50)
[2021-10-02] MEDS: predniSONE 10 MG TABLET PO SCH (08:34)
[2021-10-02] MEDS: Insulin DETEMIR 100 UNIT/ML X5UNITS SUBQ SCH ×2 (08:34→20:50)
[2021-10-02] MEDS: hydroCHLOROthiazide 25 MG TABLET PO SCH (08:34)
[2021-10-02] MEDS: Tiotropium 10 INH DOSE IH SCH (09:58)
[2021-10-03] MEDS: *HR* Enoxaparin 40 MG/0.4 ML SYRINGE SQ SCH (05:37)
[2021-10-03] MEDS: Cholecalciferol (D-3) 1,000 UNIT (25MCG) TABLET PO SCH (08:26)
[2021-10-03] MEDS: tiZANidine 4 MG TABLET PO SCH ×3 (08:26→20:32)
[2021-10-03] MEDS: hydroCHLOROthiazide 25 MG TABLET PO SCH (08:26)
[2021-10-03] MEDS: FLUoxetine 20 MG CAPSULE PO SCH (08:26)
[2021-10-03] MEDS: Gabapentin 300 MG CAPSULE PO SCH ×2 (08:26→20:32)
[2021-10-03] MEDS: Insulin DETEMIR 100 UNIT/ML X5UNITS SUBQ SCH ×2 (08:26→20:32)
[2021-10-03] MEDS: Insulin LISPRO 300 UNITS/3 ML VIAL SUBQ SCH ×3 (08:27→16:14)
[2021-10-03 09:24] LABS: Basophils # 0.1 K/mcL (0.0-0.2); Basophils % 0.3 %; Eosinophils # 0.4 K/mcL (0.0-0.6); Eosinophils % 2.8 %; Hemoglobin 12.1 g/dL (11.5-15.4); Immature Granulocytes % 0.9 % (0-4); Lymphocytes # 4.9 K/mcL (0.6-4.6); Lymphocytes % 32.1 %; Mean Corpuscular HGB Conc 31.8 g/dL (31.6-35.5); Mean Corpuscular Volume 91.1 fL (83.0-100.0); Mean Platelet Volume 9.3 fL (9.4-12.4); Monocytes % 6.4 %; Platelet Count 327 K/mcL (140-400); Red Blood Count 4.17 M/mcL (3.82-4.97); Red Cell Distribution Width 14.8 % (11.5-14.5); Segmented Neutrophils % 57.5 %; White Blood Count 15.2 K/mcL (4.3-11.1)
[2021-10-03 09:26] LABS: Neutrophils # 8.7 K/mcL (1.6-8.9)
[2021-10-03] MEDS: Tiotropium 10 INH DOSE IH SCH (09:53)
[2021-10-04] MEDS: *HR* Enoxaparin 40 MG/0.4 ML SYRINGE SQ SCH (05:32)
[2021-10-04] MEDS: FLUoxetine 20 MG CAPSULE PO SCH (07:45)
[2021-10-04] MEDS: tiZANidine 4 MG TABLET PO SCH ×3 (07:46→21:00)
[2021-10-04] MEDS: Gabapentin 300 MG CAPSULE PO SCH ×2 (07:46→21:00)
[2021-10-04] MEDS: hydroCHLOROthiazide 25 MG TABLET PO SCH (07:46)
[2021-10-04] MEDS: Insulin LISPRO 300 UNITS/3 ML VIAL SUBQ SCH ×3 (07:46→16:09)
[2021-10-04] MEDS: Cholecalciferol (D-3) 1,000 UNIT (25MCG) TABLET PO SCH (07:46)
[2021-10-04] MEDS: Insulin DETEMIR 100 UNIT/ML X5UNITS SUBQ SCH ×2 (08:25→21:00)
[2021-10-04] MEDS: Tiotropium 10 INH DOSE IH SCH (09:07)
[2021-10-04] MEDS: Budesonide/Formoterol 160/4.5 1 PUFF INH IH SCH ×2 (09:07→21:23)
[2021-10-04] MEDS: Nystatin POWDER 30 GM BOTTLE TP SCH (21:40)
[2021-10-05] MEDS: *HR* Enoxaparin 40 MG/0.4 ML SYRINGE SQ SCH (05:55)
[2021-10-05] MEDS: Gabapentin 300 MG CAPSULE PO SCH ×2 (09:24→21:05)
[2021-10-05] MEDS: tiZANidine 4 MG TABLET PO SCH ×3 (09:24→21:05)
[2021-10-05] MEDS: Cholecalciferol (D-3) 1,000 UNIT (25MCG) TABLET PO SCH (09:24)
[2021-10-05] MEDS: Insulin LISPRO 300 UNITS/3 ML VIAL SUBQ SCH ×3 (09:24→17:34)
[2021-10-05] MEDS: hydroCHLOROthiazide 25 MG TABLET PO SCH (09:25)
[2021-10-05] MEDS: FLUoxetine 20 MG CAPSULE PO SCH (09:25)
[2021-10-05] MEDS: Insulin DETEMIR 100 UNIT/ML X5UNITS SUBQ SCH ×2 (09:26→21:06)
[2021-10-05] MEDS: Nystatin POWDER 30 GM BOTTLE TP SCH ×2 (09:26→21:06)
[2021-10-05] MEDS: Budesonide/Formoterol 160/4.5 1 PUFF INH IH SCH ×2 (09:32→21:35)
[2021-10-05] MEDS: Tiotropium 10 INH DOSE IH SCH (09:33)
[2021-10-06] MEDS: *HR* Enoxaparin 40 MG/0.4 ML SYRINGE SQ SCH (06:02)
[2021-10-06] MEDS: Cholecalciferol (D-3) 1,000 UNIT (25MCG) TABLET PO SCH (08:41)
[2021-10-06] MEDS: hydroCHLOROthiazide 25 MG TABLET PO SCH (08:42)
[2021-10-06] MEDS: Gabapentin 300 MG CAPSULE PO SCH ×2 (08:42→20:59)
[2021-10-06] MEDS: tiZANidine 4 MG TABLET PO SCH ×3 (08:42→20:59)
[2021-10-06] MEDS: FLUoxetine 20 MG CAPSULE PO SCH (08:42)
[2021-10-06] MEDS: Insulin LISPRO 300 UNITS/3 ML VIAL SUBQ SCH ×3 (08:43→17:02)
[2021-10-06] MEDS: Insulin DETEMIR 100 UNIT/ML X5UNITS SUBQ SCH ×2 (08:44→21:01)
[2021-10-06] MEDS: Nystatin POWDER 30 GM BOTTLE TP SCH ×2 (08:45→21:00)
[2021-10-06] MEDS: Budesonide/Formoterol 160/4.5 1 PUFF INH IH SCH ×2 (09:43→21:13)
[2021-10-06] MEDS: Tiotropium 10 INH DOSE IH SCH (09:44)
[2021-10-07] MEDS: *HR* Enoxaparin 40 MG/0.4 ML SYRINGE SQ SCH (06:24)
[2021-10-07 07:50] VITALS: BP 132/83; PULSE 110; TEMP 97.7
[2021-10-07] MEDS: Insulin LISPRO 300 UNITS/3 ML VIAL SUBQ SCH ×2 (07:58→11:32)
[2021-10-07] MEDS: Budesonide/Formoterol 160/4.5 1 PUFF INH IH SCH (08:32)
[2021-10-07] MEDS: tiZANidine 4 MG TABLET PO SCH (08:33)
[2021-10-07] MEDS: Tiotropium 10 INH DOSE IH SCH (08:33)
[2021-10-07] MEDS: Gabapentin 300 MG CAPSULE PO SCH (08:33)
[2021-10-07] MEDS: Nystatin POWDER 30 GM BOTTLE TP SCH (08:34)
[2021-10-07] MEDS: hydroCHLOROthiazide 25 MG TABLET PO SCH (08:34)
[2021-10-07] MEDS: Cholecalciferol (D-3) 1,000 UNIT (25MCG) TABLET PO SCH (08:34)
[2021-10-07] MEDS: Insulin DETEMIR 100 UNIT/ML X5UNITS SUBQ SCH (08:34)
[2021-10-07] MEDS: FLUoxetine 20 MG CAPSULE PO SCH (08:34)
[2021-10-07 08:35] VITALS: RESP 18; O2SAT 97
== END 2021-10-07 13:05 | disposition home health service (06) | DRG 871 ==
LOC: INPPIK 09-25 03:50
PROVIDERS: ADMIT Family Medicine; ATTEND Family Medicine

== ENCOUNTER 2022-01-26 09:38 | Inpatient (IN) ==
[2022-01-26] MEDS ORDERED: Ipratropium/Albuterol Neb 3 ML IH ONE (09:48)
[2022-01-26] MEDS ORDERED: Furosemide 40 MG/4 ML VIAL IVP ONE (09:48)
[2022-01-26 10:03] LABS: Basophils # 0.1 K/mcL (0.0-0.2); Basophils % 0.6 %; Eosinophils # 1.1 K/mcL (0.0-0.6); Eosinophils % 9.5 %; Hematocrit 40.2 % (35.3-44.9); Hemoglobin 12.9 g/dL (11.5-15.4); Immature Granulocytes % 0.3 % (0-4); Lymphocytes # 2.8 K/mcL (0.6-4.6); Lymphocytes % 24.3 %; Mean Corpuscular HGB Conc 32.1 g/dL (31.6-35.5); Mean Corpuscular Volume 87.2 fL (83.0-100.0); Mean Platelet Volume 9.9 fL (9.4-12.4); Monocytes # 0.6 K/mcL (0.0-1.3); Monocytes % 5.6 %; Neutrophils # 6.9 K/mcL (1.6-8.9); Platelet Count 311 K/mcL (140-400); Red Blood Count 4.61 M/mcL (3.82-4.97); Red Cell Distribution Width 13.8 % (11.5-14.5); Segmented Neutrophils % 59.7 %; White Blood Count 11.5 K/mcL (4.3-11.1)
[2022-01-26 10:11] LABS: INR 1.1; Prothrombin Time 12.2 Seconds (9.4-12.1)
[2022-01-26 10:14] LABS: Activated Partial Thrombo Time 34.7 Seconds (26.0-36.0)
[2022-01-26] MEDS ORDERED: carvediloL 6.25 MG TABLET PO ONE (10:15)
[2022-01-26 10:20] LABS: Alanine Aminotransferase 11 Units/L (7-52); Albumin/Globulin Ratio 1.4 (1.1-2.2); Alkaline Phosphatase 58 Units/L (34-104); Aspartate Amino Transferase 19 Units/L (13-39); BUN/Creatinine Ratio 13 (6-26); Bilirubin,Total 0.4 mg/dL (0.3-1.0); Blood Urea Nitrogen 13 mg/dL (8-23); Calcium 9.4 mg/dL (8.6-10.3); Carbon Dioxide 27 mEq/L (23-29); Chloride 101 mEq/L (98-107); Globulin 2.9 g/dL (2.4-3.5); Glucose 159 mg/dL (70-105); Magnesium 1.5 mg/dL (1.6-2.6); Osmolality,Calculated 291 (280-300); Phosphorous 3.4 mg/dL (2.7-4.5); Potassium 3.6 mEq/L (3.5-5.1); Sodium 139 mEq/L (136-145); Total Protein 6.9 g/dL (6.4-8.9); Troponin I < 0.03 ng/mL (< 0.04); eGFR For African Americans > 60 (> 60); eGFR For Non-African Americans 56 (> 60)
[2022-01-26 10:30] LABS: Bilirubin,Urine Negative (Negative); Blood,Urine Trace-intact (Negative); Clarity,Urine Clear (Clear); Color,Urine Yellow (Yellow); Glucose,Urine (UA) Normal (Normal); Ketones,Urine Negative (Negative); Leukocyte Esterase,Urine Small (Negative); Nitrite,Urine Negative (Negative); PH,Urine 7.5 pH Units (5.0-8.0); Protein,Urine Negative (Neg-Trace); Urobilinogen,Urine Normal (Normal)
[2022-01-26 10:37] LABS: RBC,Urine 0-3 per hpf (0-3)
[2022-01-26 10:38] LABS: Amorphous Sediment,Urine Few per hpf (None-Few); Squamous Epithelial Cell,Urine Few per hpf (None-Few)
[2022-01-26] MEDS ORDERED: methylPREDNISolone 125 MG/2 ML VIAL IVP ONE (11:02)
[2022-01-26] MEDS ORDERED: levoFLOXacin 750 MG/150 ML 750 MG/150 ML BAG IVPB ONE (11:03)
[2022-01-26] MEDS ORDERED: Ondansetron 4 MG/2 ML VIAL IVP PRN (12:47)
[2022-01-26] MEDS ORDERED: Naloxone 0.4 MG/ML INJ IVP PRN (12:47)
[2022-01-26] MEDS ORDERED: Nitroglycerin 0.4 MG TAB.SUBL SL PRN (12:52)
[2022-01-26] MEDS ORDERED: traZODone 50 MG TABLET PO PRN (15:35)
[2022-01-26] MEDS ORDERED: Iopamidol - 370 500 ML MLS IVP ONE (15:44)
[2022-01-26] MEDS ORDERED: Perflutren Lipid Microsphere 1.3 ML in 0.9 % Sodium Chloride 8.7 ML IVP PRN (15:44)
[2022-01-26] MEDS ORDERED: NON-FORMULARY MEDICATION 1 EACH EACH (Cholecalciferol (Vitamin D3) [Vitamin D3] 50 MCG Cap PO SCH (15:45)
[2022-01-26] MEDS: amLODIPine 5 MG TABLET PO SCH (16:08)
[2022-01-26] MEDS: Cholecalciferol (D-3) 1,000 UNIT (25MCG) TABLET PO SCH (16:08)
[2022-01-26] MEDS: FLUoxetine 20 MG CAPSULE PO SCH (16:08)
[2022-01-26] MEDS: hydroCHLOROthiazide 25 MG TABLET PO SCH (16:08)
[2022-01-26] MEDS: Ipratropium/Albuterol Neb 3 ML IH SCH ×2 (16:14→20:31)
[2022-01-26] MEDS: MethylPREDNISolone 40 MG/ML VIAL IVP SCH (17:59)
[2022-01-26] MEDS: Budesonide/Formoterol 160/4.5 1 PUFF INH IH SCH (20:32)
[2022-01-26] MEDS: tiZANidine 4 MG TABLET PO SCH (21:41)
[2022-01-26] MEDS: Gabapentin 300 MG CAPSULE PO SCH (21:41)
[2022-01-26] MEDS: Acetaminophen 325 MG TABLET PO PRN (21:42)
[2022-01-26 23:30] LABS: Adenovirus Not Detected (Not Detect); Bordetella Pertussis Not Detected (Not Detect); Chlamydophila pneumoniae Not Detected (Not Detect); Coronavirus 229E Not Detected (Not Detect); Coronavirus HKU1 Not Detected (Not Detect); Coronavirus NL63 Not Detected (Not Detect); Coronavirus OC43 Not Detected (Not Detect); Human Metapneumovirus Not Detected (Not Detect); Human Rhinovirus/Enterovirus Not Detected (Not Detect); Influenza A Subtype 2009 H1 Not Detected (Not Detect); Influenza B Not Detected (Not Detect); Mycoplasma pneumoniae Not Detected (Not Detect); Parainfluenza Virus 1 Not Detected (Not Detect); Parainfluenza Virus 2 Not Detected (Not Detect); Parainfluenza Virus 3 Not Detected (Not Detect); Parainfluenza Virus 4 Not Detected (Not Detect); Respiratory Syncytial Virus Not Detected (Not Detect); SARS-CoV-2 Not Detected (Not Detect)
[2022-01-27] MEDS: Ipratropium/Albuterol Neb 3 ML IH SCH ×6 (00:18→20:41)
[2022-01-27] MEDS: MethylPREDNISolone 40 MG/ML VIAL IVP SCH ×4 (01:15→18:22)
[2022-01-27] MEDS: *HR* Enoxaparin 40 MG/0.4 ML SYRINGE SQ SCH (05:41)
[2022-01-27 07:31] LABS: Hematocrit 41.3 % (35.3-44.9); Hemoglobin 13.3 g/dL (11.5-15.4); Mean Corpuscular HGB Conc 32.2 g/dL (31.6-35.5); Mean Corpuscular Hemoglobin 27.9 pg (28.0-33.3); Mean Corpuscular Volume 86.8 fL (83.0-100.0); Mean Platelet Volume 10.1 fL (9.4-12.4); Platelet Count 347 K/mcL (140-400); Red Blood Count 4.76 M/mcL (3.82-4.97); Red Cell Distribution Width 13.9 % (11.5-14.5); White Blood Count 7.8 K/mcL (4.3-11.1)
[2022-01-27 07:55] LABS: Calcium 9.7 mg/dL (8.6-10.3); Chol/HDL Ratio 2.4 (0-4.9); Magnesium 1.7 mg/dL (1.6-2.6); Potassium 3.5 mEq/L (3.5-5.1)
[2022-01-27] MEDS: Budesonide/Formoterol 160/4.5 1 PUFF INH IH SCH ×2 (08:23→20:40)
[2022-01-27] MEDS: amLODIPine 5 MG TABLET PO SCH (08:54)
[2022-01-27] MEDS: Cholecalciferol (D-3) 1,000 UNIT (25MCG) TABLET PO SCH (08:54)
[2022-01-27] MEDS: tiZANidine 4 MG TABLET PO SCH ×3 (08:54→21:43)
[2022-01-27] MEDS: hydroCHLOROthiazide 25 MG TABLET PO SCH (08:54)
[2022-01-27] MEDS: Gabapentin 300 MG CAPSULE PO SCH ×2 (08:54→21:42)
[2022-01-27] MEDS: FLUoxetine 20 MG CAPSULE PO SCH (08:54)
[2022-01-27] MEDS: OMEGA PO SCH (08:55)
[2022-01-27] MEDS: DHA PO SCH (08:55)
[2022-01-27] MEDS: FISH OIL PO SCH (08:55)
[2022-01-27] MEDS: EPA PO SCH (08:55)
[2022-01-27] MEDS ORDERED: levoFLOXacin 750 MG/150 ML 750 MG/150 ML BAG IVPB SCH (11:00)
[2022-01-28] MEDS: MethylPREDNISolone 40 MG/ML VIAL IVP SCH ×3 (00:10→12:43)
[2022-01-28] MEDS: Ipratropium/Albuterol Neb 3 ML IH SCH ×6 (00:28→20:23)
[2022-01-28 05:18] LABS: Hematocrit 39.6 % (35.3-44.9); Hemoglobin 12.8 g/dL (11.5-15.4); Mean Corpuscular HGB Conc 32.3 g/dL (31.6-35.5); Mean Corpuscular Hemoglobin 28.1 pg (28.0-33.3); Mean Corpuscular Volume 86.8 fL (83.0-100.0); Mean Platelet Volume 10.5 fL (9.4-12.4); Platelet Count 340 K/mcL (140-400); Red Blood Count 4.56 M/mcL (3.82-4.97); Red Cell Distribution Width 13.9 % (11.5-14.5); White Blood Count 11.4 K/mcL (4.3-11.1)
[2022-01-28 05:32] LABS: Calcium 9.6 mg/dL (8.6-10.3); Potassium 3.6 mEq/L (3.5-5.1)
[2022-01-28] MEDS: *HR* Enoxaparin 40 MG/0.4 ML SYRINGE SQ SCH (06:05)
[2022-01-28] MEDS: Budesonide/Formoterol 160/4.5 1 PUFF INH IH SCH ×2 (08:31→20:26)
[2022-01-28] MEDS: hydroCHLOROthiazide 25 MG TABLET PO SCH (10:25)
[2022-01-28] MEDS: tiZANidine 4 MG TABLET PO SCH ×3 (10:26→21:19)
[2022-01-28] MEDS: FLUoxetine 20 MG CAPSULE PO SCH (10:27)
[2022-01-28] MEDS: amLODIPine 5 MG TABLET PO SCH (10:27)
[2022-01-28] MEDS: Cholecalciferol (D-3) 1,000 UNIT (25MCG) TABLET PO SCH (10:27)
[2022-01-28] MEDS: FISH OIL PO SCH (10:28)
[2022-01-28] MEDS: Gabapentin 300 MG CAPSULE PO SCH ×2 (10:28→21:20)
[2022-01-28] MEDS: DHA PO SCH (10:28)
[2022-01-28] MEDS: OMEGA PO SCH (10:28)
[2022-01-28] MEDS: EPA PO SCH (10:28)
[2022-01-28] MEDS: levoFLOXacin 750 MG/150 ML 750 MG/150 ML BAG IVPB SCH (10:29)
[2022-01-28] MEDS ORDERED: Dextrose Gel 15 GM/37.5 ML TUBE PO PRN ×2 (13:58)
[2022-01-28] MEDS ORDERED: *HR* Dextrose 50 % in Water (Syg) 50 ML SYRINGE IVP PRN (13:58)
[2022-01-28] MEDS ORDERED: D5% in Water 1,000 ML IVC PRN (13:58)
[2022-01-28 15:55] LABS: Estimated Average Glucose 160 mg/dl; Hemoglobin A1C 7.2 %
[2022-01-28] MEDS ORDERED: hydrALAZINE 25 MG TABLET PO ONE (16:23)
[2022-01-28] MEDS ORDERED: hydrALAZINE 10 MG TABLET PO PRN (16:23)
[2022-01-28] MEDS: Insulin LISPRO 300 UNITS/3 ML VIAL SUBQ SCH ×2 (16:44→21:20)
[2022-01-29] MEDS: MethylPREDNISolone 40 MG/ML VIAL IVP SCH ×3 (00:29→16:36)
[2022-01-29] MEDS: Ipratropium/Albuterol Neb 3 ML IH SCH ×6 (00:37→20:17)
[2022-01-29] MEDS: *HR* Enoxaparin 40 MG/0.4 ML SYRINGE SQ SCH (06:12)
[2022-01-29] MEDS: tiZANidine 4 MG TABLET PO SCH ×3 (07:44→20:54)
[2022-01-29] MEDS: Insulin LISPRO 300 UNITS/3 ML VIAL SUBQ SCH ×4 (07:44→20:55)
[2022-01-29] MEDS: Gabapentin 300 MG CAPSULE PO SCH ×2 (07:45→20:54)
[2022-01-29] MEDS: amLODIPine 5 MG TABLET PO SCH (07:45)
[2022-01-29] MEDS: hydroCHLOROthiazide 25 MG TABLET PO SCH (07:45)
[2022-01-29] MEDS: Cholecalciferol (D-3) 1,000 UNIT (25MCG) TABLET PO SCH (07:45)
[2022-01-29] MEDS: FLUoxetine 20 MG CAPSULE PO SCH (07:45)
[2022-01-29] MEDS: FISH OIL PO SCH (07:47)
[2022-01-29] MEDS: DHA PO SCH (07:47)
[2022-01-29] MEDS: EPA PO SCH (07:47)
[2022-01-29] MEDS: OMEGA PO SCH (07:47)
[2022-01-29 08:19] LABS: Hematocrit 38.5 % (35.3-44.9); Hemoglobin 12.3 g/dL (11.5-15.4); Mean Corpuscular HGB Conc 31.9 g/dL (31.6-35.5); Mean Corpuscular Volume 87.5 fL (83.0-100.0); Mean Platelet Volume 10.3 fL (9.4-12.4); Platelet Count 305 K/mcL (140-400); Red Cell Distribution Width 13.8 % (11.5-14.5); White Blood Count 10.7 K/mcL (4.3-11.1)
[2022-01-29 08:43] LABS: BUN/Creatinine Ratio 30 (6-26); Blood Urea Nitrogen 31 mg/dL (8-23); Carbon Dioxide 34 mEq/L (23-29); Chloride 95 mEq/L (98-107); Glucose 342 mg/dL (70-105); Osmolality,Calculated 300 (280-300); Sodium 135 mEq/L (136-145); eGFR For African Americans > 60 (> 60); eGFR For Non-African Americans 52 (> 60)
[2022-01-29] MEDS: Budesonide/Formoterol 160/4.5 1 PUFF INH IH SCH ×2 (08:48→20:22)
[2022-01-29] MEDS ORDERED: Benzonatate 100 MG CAPSULE PO PRN (09:37)
[2022-01-30] MEDS: MethylPREDNISolone 40 MG/ML VIAL IVP SCH ×3 (00:45→16:24)
[2022-01-30] MEDS: Ipratropium/Albuterol Neb 3 ML IH SCH ×6 (00:53→20:32)
[2022-01-30] MEDS: *HR* Enoxaparin 40 MG/0.4 ML SYRINGE SQ SCH (06:43)
[2022-01-30] MEDS: Insulin LISPRO 300 UNITS/3 ML VIAL SUBQ SCH ×4 (08:00→21:22)
[2022-01-30] MEDS: amLODIPine 5 MG TABLET PO SCH (08:01)
[2022-01-30] MEDS: FLUoxetine 20 MG CAPSULE PO SCH (08:01)
[2022-01-30] MEDS: hydroCHLOROthiazide 25 MG TABLET PO SCH (08:01)
[2022-01-30] MEDS: tiZANidine 4 MG TABLET PO SCH ×3 (08:01→21:19)
[2022-01-30] MEDS: Gabapentin 300 MG CAPSULE PO SCH ×2 (08:01→21:19)
[2022-01-30] MEDS: DHA PO SCH (08:02)
[2022-01-30] MEDS: FISH OIL PO SCH (08:02)
[2022-01-30] MEDS: Cholecalciferol (D-3) 1,000 UNIT (25MCG) TABLET PO SCH (08:02)
[2022-01-30] MEDS: OMEGA PO SCH (08:02)
[2022-01-30] MEDS: EPA PO SCH (08:02)
[2022-01-30] MEDS: Budesonide/Formoterol 160/4.5 1 PUFF INH IH SCH ×2 (08:56→20:32)
[2022-01-30] MEDS: levoFLOXacin 750 MG/150 ML 750 MG/150 ML BAG IVPB SCH (13:14)
[2022-01-30] MEDS: Furosemide 20 MG TABLET PO SCH (13:31)
[2022-01-31] MEDS: Ipratropium/Albuterol Neb 3 ML IH SCH ×6 (00:23→20:21)
[2022-01-31] MEDS: MethylPREDNISolone 40 MG/ML VIAL IVP SCH ×3 (00:26→16:54)
[2022-01-31] MEDS: *HR* Enoxaparin 40 MG/0.4 ML SYRINGE SQ SCH (05:27)
[2022-01-31 06:02] LABS: Hemoglobin 14.4 g/dL (11.5-15.4); Mean Corpuscular HGB Conc 33.5 g/dL (31.6-35.5); Mean Corpuscular Hemoglobin 28.6 pg (28.0-33.3); Mean Corpuscular Volume 85.5 fL (83.0-100.0); Mean Platelet Volume 10.1 fL (9.4-12.4); Platelet Count 311 K/mcL (140-400); Red Blood Count 5.03 M/mcL (3.82-4.97); Red Cell Distribution Width 13.4 % (11.5-14.5); White Blood Count 10.1 K/mcL (4.3-11.1)
[2022-01-31 06:23] LABS: Calcium 9.2 mg/dL (8.6-10.3); Potassium 4.2 mEq/L (3.5-5.1)
[2022-01-31] MEDS: Gabapentin 300 MG CAPSULE PO SCH ×2 (08:47→22:25)
[2022-01-31] MEDS: Cholecalciferol (D-3) 1,000 UNIT (25MCG) TABLET PO SCH (08:47)
[2022-01-31] MEDS: Insulin LISPRO 300 UNITS/3 ML VIAL SUBQ SCH ×4 (08:47→22:29)
[2022-01-31] MEDS: hydroCHLOROthiazide 25 MG TABLET PO SCH (08:47)
[2022-01-31] MEDS: FLUoxetine 20 MG CAPSULE PO SCH (08:47)
[2022-01-31] MEDS: Furosemide 20 MG TABLET PO SCH (08:47)
[2022-01-31] MEDS: OMEGA PO SCH (08:48)
[2022-01-31] MEDS: amLODIPine 5 MG TABLET PO SCH (08:48)
[2022-01-31] MEDS: EPA PO SCH (08:48)
[2022-01-31] MEDS: DHA PO SCH (08:48)
[2022-01-31] MEDS: tiZANidine 4 MG TABLET PO SCH ×3 (08:48→22:25)
[2022-01-31] MEDS: FISH OIL PO SCH (08:48)
[2022-01-31] MEDS: Budesonide/Formoterol 160/4.5 1 PUFF INH IH SCH ×2 (09:04→20:21)
[2022-01-31] MEDS: Acetaminophen 325 MG TABLET PO PRN (12:34)
[2022-02-01] MEDS: Ipratropium/Albuterol Neb 3 ML IH SCH ×6 (00:05→20:21)
[2022-02-01] MEDS: MethylPREDNISolone 40 MG/ML VIAL IVP SCH ×3 (00:05→21:28)
[2022-02-01] MEDS: *HR* Enoxaparin 40 MG/0.4 ML SYRINGE SQ SCH (05:59)
[2022-02-01 06:00] LABS: Basophils % 0.3 %; Eosinophils % 0.1 %; Hematocrit 41.8 % (35.3-44.9); Hemoglobin 13.8 g/dL (11.5-15.4); Lymphocytes # 0.8 K/mcL (0.6-4.6); Lymphocytes % 7.3 %; Mean Corpuscular Hemoglobin 28.1 pg (28.0-33.3); Mean Corpuscular Volume 85.1 fL (83.0-100.0); Mean Platelet Volume 10.2 fL (9.4-12.4); Monocytes # 0.4 K/mcL (0.0-1.3); Monocytes % 3.4 %; Platelet Count 315 K/mcL (140-400); Red Blood Count 4.91 M/mcL (3.82-4.97); Red Cell Distribution Width 13.5 % (11.5-14.5); Segmented Neutrophils % 87.9 %; White Blood Count 11.3 K/mcL (4.3-11.1)
[2022-02-01 06:24] LABS: Neutrophils # 9.9 K/mcL (1.6-8.9)
[2022-02-01 06:31] LABS: Calcium 8.8 mg/dL (8.6-10.3); Magnesium 2.1 mg/dL (1.6-2.6); Potassium 4.4 mEq/L (3.5-5.1)
[2022-02-01] MEDS: Budesonide/Formoterol 160/4.5 1 PUFF INH IH SCH ×2 (08:19→20:22)
[2022-02-01] MEDS ORDERED: levoFLOXacin 750 MG TABLET PO SCH (09:00)
[2022-02-01] MEDS: tiZANidine 4 MG TABLET PO SCH ×3 (09:06→19:43)
[2022-02-01] MEDS: Cholecalciferol (D-3) 1,000 UNIT (25MCG) TABLET PO SCH (09:06)
[2022-02-01] MEDS: Furosemide 20 MG TABLET PO SCH (09:06)
[2022-02-01] MEDS: FLUoxetine 20 MG CAPSULE PO SCH (09:08)
[2022-02-01] MEDS: amLODIPine 5 MG TABLET PO SCH (09:08)
[2022-02-01] MEDS: hydroCHLOROthiazide 25 MG TABLET PO SCH (09:08)
[2022-02-01] MEDS: Gabapentin 300 MG CAPSULE PO SCH ×2 (09:08→19:43)
[2022-02-01] MEDS: Insulin LISPRO 300 UNITS/3 ML VIAL SUBQ SCH ×6 (09:09→21:28)
[2022-02-01] MEDS: DHA PO SCH (09:20)
[2022-02-01] MEDS: FISH OIL PO SCH (09:20)
[2022-02-01] MEDS: EPA PO SCH (09:20)
[2022-02-01] MEDS: OMEGA PO SCH (09:20)
[2022-02-01] MEDS ORDERED: Simethicone 80 MG TAB.CHEW PO PRN (18:33)
[2022-02-02] MEDS: Ipratropium/Albuterol Neb 3 ML IH SCH ×3 (00:22→08:50)
[2022-02-02] MEDS: *HR* Enoxaparin 40 MG/0.4 ML SYRINGE SQ SCH (05:42)
[2022-02-02 06:31] LABS: Basophils % 0.2 %; Eosinophils % 0.2 %; Hematocrit 43.2 % (35.3-44.9); Hemoglobin 14.1 g/dL (11.5-15.4); Immature Granulocytes % 1.3 % (0-4); Lymphocytes # 3.8 K/mcL (0.6-4.6); Mean Corpuscular HGB Conc 32.6 g/dL (31.6-35.5); Mean Corpuscular Hemoglobin 28.4 pg (28.0-33.3); Mean Corpuscular Volume 86.9 fL (83.0-100.0); Mean Platelet Volume 10.3 fL (9.4-12.4); Monocytes # 1.3 K/mcL (0.0-1.3); Monocytes % 7.3 %; Platelet Count 357 K/mcL (140-400); Red Blood Count 4.97 M/mcL (3.82-4.97); Red Cell Distribution Width 14.1 % (11.5-14.5); White Blood Count 17.3 K/mcL (4.3-11.1)
[2022-02-02 06:37] LABS: Neutrophils # 11.9 K/mcL (1.6-8.9)
[2022-02-02 06:49] LABS: Calcium 8.6 mg/dL (8.6-10.3); Potassium 3.6 mEq/L (3.5-5.1)
[2022-02-02] MEDS: Insulin LISPRO 300 UNITS/3 ML VIAL SUBQ SCH ×2 (07:27→07:28)
[2022-02-02] MEDS: MethylPREDNISolone 40 MG/ML VIAL IVP SCH ×2 (07:28→10:12)
[2022-02-02] MEDS: Gabapentin 300 MG CAPSULE PO SCH (07:30)
[2022-02-02] MEDS: FLUoxetine 20 MG CAPSULE PO SCH (07:30)
[2022-02-02] MEDS: amLODIPine 5 MG TABLET PO SCH (07:31)
[2022-02-02] MEDS: Furosemide 20 MG TABLET PO SCH (07:31)
[2022-02-02] MEDS: tiZANidine 4 MG TABLET PO SCH (07:31)
[2022-02-02] MEDS: Cholecalciferol (D-3) 1,000 UNIT (25MCG) TABLET PO SCH (07:31)
[2022-02-02] MEDS: DHA PO SCH (07:32)
[2022-02-02] MEDS: EPA PO SCH (07:32)
[2022-02-02] MEDS: hydroCHLOROthiazide 25 MG TABLET PO SCH (07:32)
[2022-02-02] MEDS: OMEGA PO SCH (07:32)
[2022-02-02] MEDS: FISH OIL PO SCH (07:32)
[2022-02-02] MEDS: Budesonide/Formoterol 160/4.5 1 PUFF INH IH SCH (08:50)
[2022-02-02 10:16] VITALS: BP 110/75; PULSE 86; RESP 19; TEMP 97.7; O2SAT 94
== END 2022-02-02 13:55 | disposition home health service (06) | DRG 193 ==
LOC: INPPIK 09:38 → EMEROOPIK 09:38 → INPPIK 13:47
PROVIDERS: ADMIT Family Medicine; ATTEND Family Medicine